=== PATIENT | male | born 1970 | race Caucasian/White ===

== ENCOUNTER 2020-11-25 16:07 | Inpatient (IN) | payer OTHER ==
[~2020-11-25] VITALS: Ht 170.2 cm; Wt 70.0 kg
[2020-11-25] MEDS ORDERED: MORPHINE SULFATE 4 MG/ML, 1ML IVPush PRN (17:00)
[2020-11-25] MEDS ORDERED: SODIUM CHLORIDE 0.9% 1,000ML IVBOLUS ONE (17:00)
[2020-11-25] MEDS ORDERED: SODIUM CHLORIDE FLUSH 10ML SYR IVF ONE (17:00)
[2020-11-25] MEDS ORDERED: ONDANSETRON 2MG/ML, 2ML IVPush ONE (17:00)
--- NOTE | 2020-11-25 17:00 | NUR ---
20 gauge IV inserted right forearm. Labs collected, UA collected and sent to lab.
[2020-11-25] MEDS ORDERED: ONDANSETRON 2MG/ML, 2ML ONE (17:06)
[2020-11-25] MEDS ORDERED: MORPHINE SULFATE 4 MG/ML, 1ML ONE (17:06)
--- NOTE | 2020-11-25 17:14 | NUR ---
Dr. Atkinson at bedside. RN at bedside. Zofran and morphine given IV per eMAR. NS infusing.
[2020-11-25 17:15] LABS: BASOPHILS % (AUTO) 1 % (0-1); EOSINOPHILS % (AUTO) 4 % (1-7); LYMPHOCYTES % (AUTO) 28 % (22-44); MEAN CORPUSCULAR HGB CONC 35.1 g/dL (33.2-36.2); MEAN PLATELET VOLUME 6.8 fL (7.4-10.4); MONOCYTES % (AUTO) 8 % (2-9); NEUTROPHILS % (AUTO) 59 % (42-75); PLATELET COUNT 270 x10^3/uL (130-400); RED BLOOD COUNT 4.49 x10^6/uL (4.38-5.82); RED CELL DISTRIBUTION WIDTH 12.6 % (9.4-14.8)
[2020-11-25 17:20] LABS: ALANINE AMINOTRANSFERASE 68 U/L (12-78); ALBUMIN 3.8 g/dL (3.4-5.0); ANION GAP 13 mmol/L (5-15); CALCIUM 8.5 mg/dL (8.5-10.1); CHLORIDE 103 mmol/L (98-107); CREATININE 0.89 mg/dL (0.7-1.3)
[2020-11-25 17:23] LABS: ALKALINE PHOSPHATASE 154 U/L (45-117); BILIRUBIN,TOTAL 0.8 mg/dL (0.2-1.0); MD NO; TOTAL PROTEIN 7.6 g/dL (6.4-8.2)
[2020-11-25 17:26] LABS: MICROSCOPIC NOT IND
[2020-11-25] MEDS ORDERED: HYDROmorphone 2 MG/ML, 1ML IVPush PRN (17:30)
[2020-11-25] MEDS ORDERED: POTASSIUM CHLORIDE 40 MEQ in LACTATED RINGERS 1,000 ML IV SCH (18:00)
[2020-11-25 18:14] LABS: CHOLESTEROL, TOTAL 255 mg/dL (140-239); TRIGLYCERIDES 835 mg/dL (50-200)
[2020-11-25 18:16] LABS: CHOL/HDL RATIO 5.3; HDL CHOL % 19 % (26-37); HDL CHOLESTEROL (DIRECT) 48 mg/dL (40-60)
--- NOTE | 2020-11-25 18:18 | NUR ---
Potassium chloride LR infusing per eMAR.
--- NOTE | 2020-11-25 18:20 | NUR ---
US at bedside.
[2020-11-25] MEDS ORDERED: HYDROmorphone 1 MG/ML, 1ML INJ ONE (18:48)
--- NOTE | 2020-11-25 18:58 | NUR ---
Pt's 02 sats dropped to 88%. Placed on nasal cannula 3L. Sats up to 97%.
--- NOTE | 2020-11-25 19:47 | NUR ---
Report called to ELDA Arellano.
[2020-11-25] MEDS ORDERED: POTASSIUM CHLORIDE 20 MEQ TAB.ER.PRT PO ONE (20:00)
[2020-11-25] MEDS ORDERED: ONDANSETRON 2MG/ML, 2ML IVPush PRN (20:00)
[2020-11-25] MEDS ORDERED: BISACODYL 10 MG SUPP PR PRN (20:00)
--- NOTE | 2020-11-25 20:02 | NUR ---
Pt tranpsorted upstairs.
[2020-11-25] MEDS: morphine SULFATE 10 MG/ML, 1ML IVPush PRN (20:40)
[2020-11-25] MEDS: GEMFIBROZIL 600 MG TABLET PO SCH (20:41)
[2020-11-25] MEDS: HEPARIN 5,000 UNITS/ML, 1ML SQ SCH (20:41)
[2020-11-25] MEDS: LACTATED RINGERS 1,000 ML IV SCH (20:43)
[2020-11-26 00:13] VITALS: BP 130/72
[2020-11-26] MEDS: morphine SULFATE 10 MG/ML, 1ML IVPush PRN ×4 (00:16→22:50)
[2020-11-26] MEDS: LACTATED RINGERS 1,000 ML IV SCH ×4 (03:44→23:59)
[2020-11-26] MEDS: HEPARIN 5,000 UNITS/ML, 1ML SQ SCH ×3 (04:47→20:39)
[2020-11-26 06:50] VITALS: BP 142/89
[2020-11-26] MEDS: GEMFIBROZIL 600 MG TABLET PO SCH ×2 (08:32→20:39)
[2020-11-26] MEDS ORDERED: LORazepam 2 MG/ML, 1ML IV PRN (09:00)
[2020-11-26] MEDS: LORazepam 2 MG/ML, 1ML IV PRN ×4 (09:03→20:39)
[2020-11-26 09:06] LABS: ALBUMIN 3.5 g/dL (3.4-5.0); ANION GAP 9 mmol/L (5-15); CALCIUM 8.6 mg/dL (8.5-10.1); CHLORIDE 102 mmol/L (98-107)
[2020-11-26 09:11] LABS: ALANINE AMINOTRANSFERASE 62 U/L (12-78); ALKALINE PHOSPHATASE 140 U/L (45-117); CREATININE 0.83 mg/dL (0.7-1.3); TOTAL PROTEIN 7.2 g/dL (6.4-8.2)
[2020-11-26 09:13] LABS: BASOPHILS % (AUTO) 1 % (0-1); EOSINOPHILS % (AUTO) 1 % (1-7); LYMPHOCYTES % (AUTO) 11 % (22-44); MEAN CORPUSCULAR HEMOGLOBIN 34.9 pg (27.5-34.5); MEAN PLATELET VOLUME 7.4 fL (7.4-10.4); MONOCYTES % (AUTO) 6 % (2-9); NEUTROPHILS % (AUTO) 81 % (42-75); PLATELET COUNT 218 x10^3/uL (130-400); RED BLOOD COUNT 4.27 x10^6/uL (4.38-5.82); RED CELL DISTRIBUTION WIDTH 12.6 % (9.4-14.8)
[2020-11-26 09:14] LABS: MD NO
[2020-11-26] MEDS: THIAMINE IV SCH (09:44)
[2020-11-26] MEDS: MAGNESIUM SULFATE IV SCH (09:44)
[2020-11-26] MEDS: FOLIC ACID IV SCH (09:44)
[2020-11-26] MEDS: [UNRECOGNIZED DRUG - OTHER] IV SCH (09:44)
[2020-11-26 13:20] VITALS: BP 124/77
[2020-11-26 19:49] VITALS: BP 123/81
[2020-11-26] MEDS ORDERED: LORazepam 0.5MG TABLET ONE (20:37)
[2020-11-27 00:13] VITALS: BP 138/84
[2020-11-27] MEDS: HEPARIN 5,000 UNITS/ML, 1ML SQ SCH (05:41)
[2020-11-27 05:55] LABS: BASOPHILS % (AUTO) 1 % (0-1); EOSINOPHILS % (AUTO) 4 % (1-7); LYMPHOCYTES % (AUTO) 24 % (22-44); MEAN CORPUSCULAR HEMOGLOBIN 35.2 pg (27.5-34.5); MEAN CORPUSCULAR HGB CONC 35.5 g/dL (33.2-36.2); MEAN PLATELET VOLUME 7.7 fL (7.4-10.4); MONOCYTES % (AUTO) 9 % (2-9); NEUTROPHILS % (AUTO) 62 % (42-75); PLATELET COUNT 186 x10^3/uL (130-400); RED BLOOD COUNT 3.95 x10^6/uL (4.38-5.82); RED CELL DISTRIBUTION WIDTH 12.5 % (9.4-14.8)
[2020-11-27 05:57] LABS: MD NO
[2020-11-27 06:09] LABS: ALBUMIN 3.1 g/dL (3.4-5.0); ANION GAP 6 mmol/L (5-15); CALCIUM 8.9 mg/dL (8.5-10.1); CHLORIDE 103 mmol/L (98-107)
[2020-11-27 06:13] LABS: ALANINE AMINOTRANSFERASE 39 U/L (12-78); ALKALINE PHOSPHATASE 115 U/L (45-117); BILIRUBIN,TOTAL 1.9 mg/dL (0.2-1.0); CREATININE 0.85 mg/dL (0.7-1.3); TOTAL PROTEIN 6.4 g/dL (6.4-8.2)
[2020-11-27] MEDS: LACTATED RINGERS 1,000 ML IV SCH (06:20)
[2020-11-27 08:00] VITALS: BP 117/71
[2020-11-27] MEDS: GEMFIBROZIL 600 MG TABLET PO SCH (08:52)
[2020-11-27] MEDS: LORazepam 2 MG/ML, 1ML IV PRN (09:00)
[2020-11-27] MEDS: FOLIC ACID IV SCH (09:58)
[2020-11-27] MEDS: [UNRECOGNIZED DRUG - OTHER] IV SCH (09:58)
[2020-11-27] MEDS: THIAMINE IV SCH (09:58)
[2020-11-27] MEDS: MAGNESIUM SULFATE IV SCH (09:58)
== END 2020-11-27 11:49 | disposition left against medical advice (07) | DRG 439 ==
LOC: ED 17:08 → EDIP 19:10 → 4NE 19:56
PROVIDERS: ADMIT Internal Medicine; ATTEND Internal Medicine
DX: K85.90 Acute pancreatitis without necrosis or infection, unspecified (principal); E87.2 Acidosis; F10.239 Alcohol dependence with withdrawal, unspecified; E78.1 Pure hyperglyceridemia; D75.89 Other specified diseases of blood and blood-forming organs; E87.6 Hypokalemia; F17.210 Nicotine dependence, cigarettes, uncomplicated; N30.90 Cystitis, unspecified without hematuria; Z80.9 Family history of malignant neoplasm, unspecified; Z83.3 Family history of diabetes mellitus
CPT/HCPCS: 36415; 96361; 96374; 96375; 99285; J7121; 76700; 80053; 80061; 81003; 83036; 83605; 83615; 83690; 83735; 84100; 85025; G0378; J1170; J1644; J2405; J3411; J3475; J3480; J2060; J2270; J7030; J7120

== ENCOUNTER → 2020-11-25 | Outpatient (CLI) | payer OTHER ==
[~2020-11-25] MED LIST: OMNIPAQUE 350 MG/ML, 100ML BOTTLE ONE
== END | disposition home or self-care (01) ==
LOC: CFH 12:30
PROVIDERS: ATTEND Family Medicine
DX: N32.89 Other specified disorders of bladder (principal); R10.84 Generalized abdominal pain
CPT/HCPCS: 74177; Q9967